=== PATIENT | female | born 1970 | race Caucasian/White ===

== ENCOUNTER → 2018-08-02 | Outpatient (REF) | payer OTHER | LOC: M SFHCLERA 12:22 | DX: R53.81 Other malaise (principal) ==

== ENCOUNTER → 2018-09-05 | Outpatient (CLI) | payer OTHER ==
--- NOTE | 2018-09-05 15:21 | REP ---
Chest two views HISTORY: Wheezing Comparison: 08/01/2011 Linear density is present overlying the heart seen only in the lateral radiograph. This represents scarring. The lungs are otherwise clear. The heart is normal in size. The pulmonary vasculature is normal in appearance. The bony structure is intact. IMPRESSION: No acute disease. Electronically Signed by Danilo Stern MD 09/05/2018 03:12 P
== END ==
LOC: M LRY 14:48
PROVIDERS: ATTEND Physician Assistant
DX: R06.2 Wheezing (principal)

== ENCOUNTER 2019-06-05 17:31 | Emergency (ER) | payer OTHER ==
[~2019-06-05] VITALS: Ht 162.6 cm; Wt 62.1 kg
[2019-06-05] MEDS ORDERED: ESOM40CA35 (17:39)
[2019-06-05] MEDS ORDERED: IFERCAP (17:39)
[2019-06-05] MEDS ORDERED: VENL150C43 (17:39)
[2019-06-05 18:16] LABS: BASO # 0.1 10^3/uL (0.0-0.2); BASO % 0.6 % (0.0-1.0); EOS # 0.3 10^3/uL (0.0-0.5); EOS % 2.6 % (0.0-3.0); HEMATOCRIT 38.9 % (36.0-47.0); HEMOGLOBIN 12.6 g/dl (12.0-15.5); LYMPH # 2.2 10^3/uL (1.5-5.0); LYMPH % 20.4 % (24.0-44.0); MEAN CORPUSCULAR HEMOGLOBIN 28.4 pg (27.0-33.0); MEAN CORPUSCULAR HGB CONC 32.4 g/dl (32.0-36.5); MEAN CORPUSCULAR VOLUME 87.6 fl (80.0-96.0); MONO # 0.5 10^3/uL (0.0-0.8); MONO % 4.4 % (0.0-5.0); NEUTROPHILS # 7.7 10^3/uL (1.5-8.5); NEUTROPHILS % 71.6 % (36.0-66.0); PLATELET COUNT, AUTOMATED 391 10^3/uL (150-450); RED BLOOD COUNT 4.44 10^6/uL (4.00-5.40); WHITE BLOOD COUNT 10.8 10^3/uL (4.0-10.0)
[2019-06-05 18:41] LABS: ALBUMIN 3.4 GM/DL (3.2-5.2); ALT/SGPT 28 U/L (12-78); BILIRUBIN,DIRECT 0.1 MG/DL (0.0-0.2); BILIRUBIN,TOTAL 0.4 MG/DL (0.2-1.0); BLOOD UREA NITROGEN 10 MG/DL (7-18); CARBON DIOXIDE LEVEL 30 MEQ/L (21-32); CHLORIDE LEVEL 106 MEQ/L (98-107); CREATININE FOR GFR 0.78 MG/DL (0.55-1.30); GLOMERULAR FILTRATION RATE > 60.0 (>58); GLUCOSE, FASTING 96 MG/DL (70-100); LIPASE 99 U/L (73-393); POTASSIUM SERUM 4.7 MEQ/L (3.5-5.1); SODIUM LEVEL 141 MEQ/L (136-145)
[2019-06-05 18:47] LABS: HCG, SERUM QUALITATIVE NEGATIVE (NEGATIVE)
--- NOTE | 2019-06-05 21:23 | REPVR ---
PROCEDURE INFORMATION: Exam: US Abdomen Limited, Right Upper Quadrant Exam date and time: 06/05/2019 8:24 PM Clinical history: 48 years old, female; Abdominal pain; Acute; Additional info: Upper abdominal pain R/O cholecystitis, pancreatitis TECHNIQUE: Imaging protocol: Real-time ultrasound of the abdomen with image documentation. Examination was focused on the right upper quadrant. COMPARISON: No relevant prior studies available. FINDINGS: Liver: The liver demonstrates no focal defects but appears to be attenuating. Gallbladder: The gallbladder demonstrates no stones and is somewhat contracted. There is no wall thickening measuring 1 mm. Common bile duct: The common bile duct measures 4 mm. Pancreas: Limited visualization of the pancreas demonstrates no abnormality. Right kidney: The right kidney is normal measuring 10.6 cm. No hydronephrosis. IMPRESSION: 1. Fatty infiltration of the liver. 2. Otherwise negative right upper quadrant sonogram. Electronically signed by: Rolando López On 06/05/2019 21:22:58 PM
[2019-06-05] MEDS ORDERED: PERC5TAB12 PO (21:24)
[2019-06-05] MEDS ORDERED: TAMS1CAP17 PO (21:24)
--- NOTE | 2019-06-05 21:32 | REPVR ---
PROCEDURE INFORMATION: Exam: US Pelvis Complete, Transabdominal Exam date and time: 06/05/2019 8:24 PM Clinical history: 48 years old, female; Pelvic pain; Additional info: R/O ovarian torsion TECHNIQUE: Imaging protocol: Real-time transabdominal pelvic ultrasound with image documentation. Complete exam. COMPARISON: No relevant prior studies available. FINDINGS: Uterus/cervix: The uterus measures 10.1 cm in its cephalocaudad dimension and 5.4 x 6.0 cm in its AP and lateral dimensions transabdominal. The uterus measures 8.3 cm in its cephalocaudad dimension and 5.0 x 5.7 cm in its AP and lateral dimensions transvaginal. The endometrium measures 8 mm transabdominal and transvaginal. Right adnexa: The right ovary measures 3.1 x 1.5 x 2.1 cm and demonstrates blood flow. Left adnexa: The left ovary measures 2.7 x 2.9 x 3.3 cm and demonstrates a follicle measuring 11 x 15 x 15 mm. There is left ovarian blood flow. Free fluid: None. Bladder: The urinary bladder measures 3.1 x 3.3 x 5.0 cm. IMPRESSION: Negative pelvic sonogram. There is bilateral ovarian blood flow with no evidence of torsion. Electronically signed by: Rolando López On 06/05/2019 21:31:52 PM
[2019-06-05 22:02] VITALS: BP 136/78
--- NOTE | 2019-06-06 00:11 | ED PDOC ---
Post-Departure Follow-Up PROVIDER CONTACTED PATIENT BY PHONE AND ADVISED HER U/S OF PELVIS AND GALLBLADDE R REMARKABLE ONLY FOR FATTY LIVER. ADVISED PT TO FOLLOW UP WITH HER PCP ON THIS FINDING. PT VOICED UNDERSTANDING. Qiana Fuentes PA-C Jun 06, 2019 00:11
== END 2019-06-05 21:50 | disposition home or self-care (01) ==
LOC: M ED 17:31
DX: R31.29 Other microscopic hematuria (principal); F41.9 Anxiety disorder, unspecified; F33.9 Major depressive disorder, recurrent, unspecified; F17.200 Nicotine dependence, unspecified, uncomplicated; Z79.899 Other long term (current) drug therapy

== ENCOUNTER → 2019-12-05 | Outpatient (CLI) | payer OTHER ==
[~2019-12-05] MED LIST: ESOM40CA35; IFERCAP; PERC5TAB12 PO; TAMS1CAP17 PO; VENL150C43
== END ==
LOC: M LABSMTC 11:43
PROVIDERS: ATTEND Family Medicine
DX: Z11.59 Encounter for screening for other viral diseases (principal); Z20.828 Contact with and (suspected) exposure to other viral communicable diseases

== ENCOUNTER → 2024-09-09 | Outpatient (REF) | payer OTHER ==
[2024-09-09 18:33] LABS: BASO # 0.1 10^3/uL (0.0-0.2); BASO % 1.5 % (0.0-1.0); EOS # 0.2 10^3/uL (0.0-0.5); EOS % 3.1 % (0.0-3.0); HEMATOCRIT 42.4 % (36.0-47.0); HEMOGLOBIN 13.5 g/dl (12.0-15.5); LYMPH # 2.1 10^3/uL (1.5-5.0); LYMPH % 30.7 % (24.0-44.0); MEAN CORPUSCULAR HEMOGLOBIN 28.1 pg (27.0-33.0); MEAN CORPUSCULAR HGB CONC 31.8 g/dl (32.0-36.5); MEAN CORPUSCULAR VOLUME 88.1 fl (80.0-96.0); MONO # 0.4 10^3/uL (0.0-0.8); MONO % 5.5 % (2.0-8.0); NEUTROPHILS % 58.9 % (36.0-66.0); PLATELET COUNT, AUTOMATED 188 10^3/uL (150-450); RED BLOOD COUNT 4.81 10^6/uL (4.00-5.40); WHITE BLOOD COUNT 6.8 10^3/uL (4.0-10.0)
[2024-09-09 18:43] LABS: ERYTHROCYTE SEDIMENTATION RATE 30 mm/hr (0-30)
[2024-09-09 18:59] LABS: ALBUMIN 3.6 G/DL (3.2-5.2); ALKALINE PHOSPHATASE 100 U/L (35-104); ALT/SGPT 32 U/L (7.0-40); AST/SGOT 21 U/L (<34); BILIRUBIN,TOTAL 0.4 MG/DL (0.3-1.2); BLOOD UREA NITROGEN 16 MG/DL (9-23); C REACTIVE PROTEIN QUANTITATIV 1.59 MG/DL (<1.0); CALCIUM LEVEL 10.1 MG/DL (8.5-10.1); CARBON DIOXIDE LEVEL 29 MMOL/L (20-31); CHLORIDE LEVEL 106 MMOL/L (98-107); CREATININE FOR GFR 0.72 MG/DL (0.55-1.30); GLOMERULAR FILTRATION RATE > 60.0 (>51); GLUCOSE, FASTING 100 MG/DL (60-100); POTASSIUM SERUM 4.7 MMOL/L (3.5-5.1); SODIUM LEVEL 142 MMOL/L (136-145); TOTAL PROTEIN 7.3 G/DL (5.7-8.2)
[2024-09-13 00:58] LABS: CYCLIC CITRULLINATED PEPTIDE < 16 UNITS (<20)
[2024-09-13 17:47] LABS: HLA-B27 Negative (Negative)
== END ==
LOC: M SFHCRHEU 14:25
PROVIDERS: ATTEND Internal Medicine Rheumatology
DX: R79.82 Elevated C-reactive protein (CRP) (principal); R52 Pain, unspecified; R20.0 Anesthesia of skin